=== PATIENT | male | born 1995 | race Caucasian/White ===

== ENCOUNTER 2020-08-30 12:04 | Outpatient (REF) | payer OTHER, SELFPAY | END 2020-08-30 12:05 | disposition home or self-care (01) | LOC: HO.LAB 12:04 | PROVIDERS: Visit Provider Internal Medicine | DX: Z20.822 Contact with and (suspected) exposure to COVID-19 (principal) | CPT/HCPCS: 36415; C9803; U0003; U0005 ==

== ENCOUNTER 2024-09-01 08:33 | Emergency (ER) | payer OTHER, SELFPAY ==
--- NOTE | 2024-09-01 | ECG_ITS ---
Test Reason : chest pain Blood Pressure : */* mmHG Vent. Rate : 69 BPM Atrial Rate : 69 BPM P-R Int : 156 ms QRS Dur : 84 ms QT Int : 376 ms P-R-T Axes : 21 15 1 degrees QTcB Int : 402 ms Normal sinus rhythm with sinus arrhythmia Normal ECG No previous ECGs available Referred By: Generic ED Physician Electronically Signed By: ANTONIO VILLALOBOS
[2024-09-01 08:53] VITALS: BP 135/80; PULSE 58; RESP 16; TEMP 36.3; O2SAT 99; BMI 34.9
[2024-09-01 08:58] LABS: MANUAL DIFF FLAG NO
[2024-09-01 09:00] LABS: Basophils Absolute Auto 0.1 X10*3/uL (0.0-0.2); Basophils Percent Auto 0.5 % (0-2); Eosinophils Absolute Auto 0.1 X10*3/uL (0.0-0.4); Eosinophils Percent Auto 1.1 % (0-4); Hematocrit 41.1 % (42.0-52.0); Imm Gran Abs Auto 0.03 X10*3/uL (0.00-0.03); Imm Gran Pct Auto 0.3 % (0.0-0.4); Lymphocytes Absolute Auto 1.6 X10*3/uL (1.2-4.9); Lymphocytes Percent Auto 17.1 % (20-40); Mean Corpuscular HGB Conc 34.1 g/dl (31.0-36.0); Mean Corpuscular Hemoglobin 28.9 pg (27.0-33.0); Mean Corpuscular Volume 84.9 fL (80.0-98.0); Mean Platelet Volume 11.2 fL (9.4-12.4); Monocytes Absolute Auto 0.6 X10*3/uL (0.1-1.2); Monocytes Percent Auto 6.5 % (2-11); Neutrophils Absolute Auto 6.9 x10*3/uL (2.0-8.3); Neutrophils Percent Auto 74.5 % (45-73); Platelet Count 282 X10*3/uL (160-400); Red Blood Count 4.84 X10*6/uL (4.60-5.80); Red Cell Distribution Width 14.2 % (11.0-16.0); White Blood Count 9.2 X10*3/uL (4.8-10.8)
[2024-09-01 09:15] LABS: Alanine Aminotransferase 43 U/L (0-40); Albumin Level 4.4 g/dL (3.5-5.0); Alkaline Phosphatase 78 U/L (39-117); Anion Gap 11 (12-20); Aspartate Amino Transferase 21 U/L (5-37); Bilirubin Total 0.2 mg/dL (0.0-1.0); Blood Urea Nitrogen 9 mg/dL (9-16); Carbon Dioxide 24 mmol/L (22-29); Chloride 109 mmol/L (96-108); Creatinine Clr Calc Pharmacy 161.4; Estimated Glomerular Filt Rate > 60; Glucose Random 162 mg/dL (60-115); Sodium 140 mmol/L (135-145); Total Protein 7.7 g/dL (6.5-8.0)
[2024-09-01 09:25] LABS: Troponin-I High Sensitivity < 2.7 ng/L (<3.5-35.0)
[2024-09-01 10:07] LABS: Influenza A PCR NEGATIVE (Negative); Influenza B PCR NEGATIVE (Negative); Resp Syncy Virus RNA Qual PCR NEGATIVE (Negative); SARS COV2 PCR INHOUSE NEGATIVE (Negative)
== END 2024-09-01 16:06 | disposition left against medical advice (07) ==
LOC: HO.ED 15:56
PROVIDERS: Emergency Provider Emergency Medicine
DX: R06.02 Shortness of breath (principal); R07.9 Chest pain, unspecified; Z53.21 Procedure and treatment not carried out due to patient leaving prior to being seen by health care provider
CPT/HCPCS: 0241U; 80053; 84484; 85025; 93005; 99281; 99283

== ENCOUNTER → 2024-09-01 08:52 | Outpatient (BNV) | payer OTHER, SELFPAY | PROVIDERS: Emergency Provider Emergency Medicine; Visit Provider Internal Medicine | DX: R07.9 Chest pain, unspecified (principal) | CPT/HCPCS: 93010 ==

== ENCOUNTER 2025-07-11 08:49 | Emergency (ER) | payer OTHER, SELFPAY ==
[2025-07-11 09:09] VITALS: BP 125/81; PULSE 106; RESP 18; TEMP 37.7; O2SAT 97; BMI 33.0
--- NOTE | 2025-07-11 10:03 | ED_ITS ---
HPI - General Adult General Chief complaint: Upper Respiratory Symptoms Stated complaint: Joint pain, LAWSON, stomachache, bodyache, cough Time Seen by Provider: 07/11/25 09:28 Source: patient, RN notes reviewed and old records reviewed Mode of arrival: ambulatory Limitations: no limitations History of Present Illness ED Provider: DAVID Luna HPI narrative: 29-year-old male without significant medical history presents to the ED due to 4 days of nasal congestion, ear pressure, cough, headache, body aches. Patient states the cough is dry in nature with a tickling sensation in his throat that causes emesis when in a coughing fit with thin phlegm. Patient reports an episode of chills this morning and feeling hot. Insert reports he took Advil at 6:00 a.m. with mild relief of his symptoms. Patient denies any sick contacts or children living in his home and works at a car [employer]. Denies chest pain, chest tightness, SOB, difficulty breathing, abdominal pain, nausea, diarrhea, urinary symptoms MD complaint: general malaise, body aches, nasal congestion, ear pressure Related Data Allergies Allergy/AdvReac Type Severity Reaction Status Date / Time No Known Allergies (No Known Allergy Verified 07/11/25 09:11 Allergies*) Review of Systems Review of Systems: Yes all other systems are reviewed and are negative PMFSH Past Medical History Attestation statement: The following information was validated with the patient. Source: old records reviewed and nursing notes reviewed Social History Social History Advance Directives: No Advance Directives Information Provided: No Do you have a plan to hurt others: No Plan Physical Exam ED Vital Signs: Vital Signs - 24 hr 07/11/25 09:09 Temperature 99.9 F Pulse Rate 106 H Respiratory Rate 18 Blood Pressure 125/81 Pulse Oximetry 97 BMI result Body Mass Index 33.0 GENERAL APPEARANCE: ?AxOx4, generally well-appearing, no acute distress. HEENT: ?NC, AT. MMM. EOMI, clear conjunctiva, oropharynx clear. NECK: ?Supple without lymphadenopathy.? No stiffness or restricted ROM. HEART:? Normal rate and regular rhythm, normal S1/S2, no m/r/g LUNGS:? CTAB, moving air well, no expiratory wheeze, rhonchi noted, no increased work of breathing, accessory muscle use or pursed lip breathing noted ABDOMEN: ?Soft, nontender, nondistended BACK: No CVAT, no obvious deformity. EXTREMITIES: ?Without cyanosis, clubbing or edema. NEUROLOGICAL: ?Grossly nonfocal. Alert and oriented, moving all 4 extremities. Ambulating with normal gait Skin: ?Warm and dry without any rash. Medical Decision Making Medical Decision Making MDM Narrative: 29-year-old male without significant medical history presents to the ED due to 4 days of nasal congestion, ear pressure, cough, headache, body aches. Patient states the cough is dry in nature with a tickling sensation in his throat that causes emesis when in a coughing fit with thin phlegm. Patient reports an episode of chills this morning and feeling hot. Insert reports he took Advil at 6:00 a.m. with mild relief of his symptoms. Patient denies any sick contacts or children living in his home and works at a car wash. VS on initial observation-BP 125/81, pulse rate of 106, respiratory rate of 18, afebrile with oral temp of 99.9?, O2 saturation 97% on room air. On physical exam patient is well-appearing, nontoxic appearing, lungs clear to auscultation bilaterally without expiratory wheeze or rhonchi noted, no increased work of breathing, no accessory muscle use, abdomen is soft, nondistended, no rigidity, nontender, lower extremities without edema Plan: Viral serology -Patient medicated with 975 p.o. Tylenol for body aches Course: Patient with 4 days of symptoms, viral serology negative however his symptoms are consistent with a viral syndrome. Patient without hypoxia, no chest tightness or chest pain, cough is mildly productive less likely pneumonia or bronchitis. no indication for imaging today. I counseled patient on supportive care measures including plenty of hydration, rest and nutritious broths until symptoms subside. I counseled patient to follow up with his primary care doctor to ensure resolution of symptoms and/or antibiotic should his symptoms worsen. I counseled patient on strict return precautions. Patient feels well enough to go home for self-care today, and is in agreement with the plan. Differential Diagnosis Differential Diagnoses: The differential diagnosis associated with the presentation includes COVID Flu RSV Viral illness Pneumonia Admission/Observation Consideration of admission/observation: Escalation of care including admission/observation considered Patient afebrile, without hypoxia, tachycardia tachypnea, no indication for admission at this time Lab Data MDM Lab Attestation statement: I reviewed the patient's lab results. Labs: Lab Results 07/11/25 Range/Units 09:23 Influenza Type A (PCR) NEGATIVE (Negative) Influenza Type B (PCR) NEGATIVE (Negative) RSV RNA Qual (PCR) NEGATIVE (Negative) SARS-CoV-2 RNA (RT-PCR) NEGATIVE (Negative) External Record Review External record reviewed: Inpatient record, Office record, Outpatient record and Prior outpatient labs Prescription Management I considered prescription management with: Antibiotic Patient with 4 days of symptoms, with mostly dry cough with mild phlegm production, no indication for antibiotics at this time Chronic Conditions Patient?s care impacted by: Other (No known medical history) Discharge Plan Discharge Clinical Impression: Viral illness Patient Disposition: Home, Self-Care Instructions: Viral Syndrome (ED) Additional Instructions: You were evaluated in the emergency department today due to 4 days of upper respiratory symptoms. Your physical exam was reassuring as your lungs were clear without wheeze or coarse lung sounds. Your viral tests including flu, COVID, RSV were negative today however there are many different viruses that we do not test for that is most likely the cause of your symptoms. Viral illnesses are self-limiting and improve with time without the need of antibiotics. Please ensure you are getting plenty of hydration at home including Gatorade, Pedialyte, Powerade whatever you can tolerate. It is normal for you to have a decreased appetite at this time just ensure you are getting plenty of liquids. To manage pain and fever at home I recommend that you take 500 mg of Tylenol, and 400 mg of ibuprofen every 6 hours. Please follow up with your primary care doctor to ensure resolution of your symptoms as if your symptoms get worse you may need antibiotics. Please return to the emergency department if you experience fevers over 100.4? that are not controlled with Tylenol/ibuprofen, worsening cough, chest pain, chest tightness, shortness of breath, or any new/worsening/concerning symptoms. Print Language: Sinhala
[2025-07-11 10:12] LABS: Resp Syncy Virus RNA Qual PCR NEGATIVE (Negative); SARS COV2 PCR INHOUSE NEGATIVE (Negative)
[2025-07-11 10:52] VITALS: BP 121/72; PULSE 96; RESP 16; TEMP 37.7; O2SAT 96
== END 2025-07-11 11:02 | disposition home or self-care (01) ==
PROVIDERS: Emergency Provider Emergency Medicine
DX: B34.9 Viral infection, unspecified (principal); M79.10 Myalgia, unspecified site; R05.9 Cough, unspecified; Z03.818 Encounter for observation for suspected exposure to other biological agents ruled out
CPT/HCPCS: 87637; 99283